=== PATIENT | female | born 1955 | race Caucasian/White ===

== ENCOUNTER 2020-12-19 01:51 | Outpatient (RCR) | payer MEDICARE, OTHER, SELFPAY ==
[2020-11-28] MEDS: Normal Saline Flush 10 ML SYR IVP (08:53)
[2020-11-28 09:02] LABS: Abs Immature Grans 0.02 10^3/uL (0.0-0.06); Absolute Basophil Count 0.03 10^3/uL (0.0-0.2); Absolute Eosinophil Count 0.22 10^3/uL (0.0-0.7); Absolute Lymphocyte Count 1.71 10^3/uL (1.2-3.4); Absolute Monocyte Count 0.82 10^3/uL (0.1-0.8); Absolute Neutrophil Count 6.07 10^3/uL (1.2-6.7); Basophils % 0.3; Eosinophils % 2.5; HCT 44.9 % (36.0-46.0); HGB 14.3 g/dL (11.2-15.7); Immature Grans % 0.2; Lymphocytes % 19.3; MCH 31.2 pg (27.0-33.0); MCHC 31.8 % (32.0-36.0); MPV 10.1 fL (8.0-11.0); Monocytes % 9.2; Neutrophils % 68.5; Nucleated RBC 0 %; Platelet Count 226 10^3/uL (130-400); RBC 4.58 10^6/uL (3.93-5.22); RDW 14.6 % (11.7-14.6); RDW-SD 52.5 fL; WBC 8.87 10^3/uL (4.4-10.8)
[2020-11-28 09:19] LABS: ALT 14 U/L (14-59); AST 13 U/L (15-37); Albumin 3.4 g/dL (3.4-5.0); Alkaline Phosphatase 120 U/L (46-116); Anion Gap 4.9 mmol/L (3-11); BUN 8 mg/dL (7-18); Bilirubin, Total 0.4 mg/dL (0.2-1.0); CO2 31.1 mmol/L (21.0-32.0); CREATININE 0.8 mg/dL (0.55-1.02); Calcium 9.6 mg/dL (8.5-10.1); Chloride 104 mmol/L (98-107); Glucose 108 mg/dL (74-106); Magnesium 1.8 mg/dL (1.8-2.4); Potassium 4.2 mmol/L (3.5-5.1); Sodium 140 mmol/L (136-145); Total Protein 7.3 g/dL (6.4-8.2)
[2020-12-19] MEDS: Normal Saline Flush 10 ML SYR IVP (07:29)
[2020-12-19 07:44] LABS: Abs Immature Grans 0.28 10^3/uL (0.0-0.06); Absolute Basophil Count 0.03 10^3/uL (0.0-0.2); Absolute Eosinophil Count 0.02 10^3/uL (0.0-0.7); Absolute Lymphocyte Count 2.02 10^3/uL (1.2-3.4); Absolute Monocyte Count 0.65 10^3/uL (0.1-0.8); Absolute Neutrophil Count 3.59 10^3/uL (1.2-6.7); Basophils % 0.5; Eosinophils % 0.3; HCT 37.8 % (36.0-46.0); HGB 12.2 g/dL (11.2-15.7); Immature Grans % 4.2; Lymphocytes % 30.7; MCH 30.7 pg (27.0-33.0); MCHC 32.3 % (32.0-36.0); Monocytes % 9.9; Neutrophils % 54.4; Nucleated RBC 0 %; Platelet Count 191 10^3/uL (130-400); RBC 3.98 10^6/uL (3.93-5.22); RDW 14.2 % (11.7-14.6); RDW-SD 47.8 fL; WBC 6.59 10^3/uL (4.4-10.8)
[2020-12-19 07:58] LABS: ALT 18 U/L (14-59); AST 17 U/L (15-37); Albumin 2.7 g/dL (3.4-5.0); Alkaline Phosphatase 107 U/L (46-116); Anion Gap 7.6 mmol/L (3-11); BUN 9 mg/dL (7-18); Bilirubin, Total 0.1 mg/dL (0.2-1.0); CO2 29.4 mmol/L (21.0-32.0); CREATININE 0.9 mg/dL (0.55-1.02); Calcium 9.3 mg/dL (8.5-10.1); Chloride 104 mmol/L (98-107); Glucose 91 mg/dL (74-106); Sodium 141 mmol/L (136-145); Total Protein 6.4 g/dL (6.4-8.2)
== END 2020-12-27 23:59 | disposition home or self-care (01) ==
LOC: INF 01:51
PROVIDERS: PCP Nurse Practitioner Family; Visit Provider Internal Medicine Medical Oncology
DX: C34.12 Malignant neoplasm of upper lobe, left bronchus or lung (principal); Z45.2 Encounter for adjustment and management of vascular access device
CPT/HCPCS: 36591; 80053; 83735; 85025

== ENCOUNTER 2021-01-09 03:25 | Outpatient (RCR) | payer MEDICARE, OTHER, SELFPAY ==
[2021-01-09] MEDS: Normal Saline Flush 10 ML SYR IVP (07:32)
[2021-01-09 07:41] LABS: Abs Immature Grans 0.26 10^3/uL (0.0-0.06); Absolute Basophil Count 0.03 10^3/uL (0.0-0.2); Absolute Eosinophil Count 0.04 10^3/uL (0.0-0.7); Absolute Neutrophil Count 7.13 10^3/uL (1.2-6.7); Basophils % 0.3; Eosinophils % 0.4; HCT 31.3 % (36.0-46.0); Immature Grans % 2.6; Lymphocytes % 15.9; MCH 30.4 pg (27.0-33.0); MCHC 31.9 % (32.0-36.0); MCV 95.1 fL (80-95); MPV 10.8 fL (8.0-11.0); Monocytes % 9.9; Neutrophils % 70.9; Nucleated RBC 0 %; Platelet Count 111 10^3/uL (130-400); RBC 3.29 10^6/uL (3.93-5.22); RDW 15.4 % (11.7-14.6); WBC 10.06 10^3/uL (4.4-10.8)
[2021-01-09 08:01] LABS: Magnesium 1.3 mg/dL (1.8-2.4)
[2021-01-09 08:04] LABS: ALT 33 U/L (14-59); AST 22 U/L (15-37); Albumin 2.5 g/dL (3.4-5.0); Alkaline Phosphatase 112 U/L (46-116); BUN 11 mg/dL (7-18); Bilirubin, Total 0.2 mg/dL (0.2-1.0); CREATININE 0.8 mg/dL (0.55-1.02); Chloride 104 mmol/L (98-107); Glucose 120 mg/dL (74-106); Potassium 4.4 mmol/L (3.5-5.1); Sodium 139 mmol/L (136-145); Total Protein 6.3 g/dL (6.4-8.2)
== END 2021-01-26 23:59 | disposition home or self-care (01) ==
LOC: INF 03:25
PROVIDERS: PCP Nurse Practitioner Family; Visit Provider Internal Medicine Medical Oncology
DX: C34.12 Malignant neoplasm of upper lobe, left bronchus or lung (principal); Z45.2 Encounter for adjustment and management of vascular access device
CPT/HCPCS: 36591; 80053; 83735; 85025

== ENCOUNTER 2021-02-20 00:48 | Outpatient (RCR) | payer MEDICARE, OTHER, SELFPAY ==
[2021-02-13] MEDS: Normal Saline Flush 10 ML SYR IVP (08:36)
[2021-02-13] MEDS: Heparin 500 UNITS/5 ML SYRINGE IV (08:36)
[2021-02-13 08:54] LABS: Abs Immature Grans 0.04 10^3/uL (0.0-0.06); Absolute Basophil Count 0.03 10^3/uL (0.0-0.2); Absolute Lymphocyte Count 2.64 10^3/uL (1.2-3.4); Absolute Monocyte Count 0.79 10^3/uL (0.1-0.8); Absolute Neutrophil Count 6.42 10^3/uL (1.2-6.7); Basophils % 0.3; HCT 35.5 % (36.0-46.0); HGB 10.8 g/dL (11.2-15.7); Immature Grans % 0.4; Lymphocytes % 26.3; MCH 30.5 pg (27.0-33.0); MCHC 30.4 % (32.0-36.0); MCV 100.3 fL (80-95); MPV 11.4 fL (8.0-11.0); Monocytes % 7.9; Neutrophils % 64.1; Nucleated RBC 0 %; RBC 3.54 10^6/uL (3.93-5.22); RDW 18.1 % (11.7-14.6); RDW-SD 66.4 fL; WBC 10.02 10^3/uL (4.4-10.8)
[2021-02-13 09:05] LABS: ALT 22 U/L (14-59); AST 18 U/L (15-37); Albumin 2.8 g/dL (3.4-5.0); Alkaline Phosphatase 142 U/L (46-116); Anion Gap 6.4 mmol/L (3-11); BUN 8 mg/dL (7-18); Bilirubin, Total 0.4 mg/dL (0.2-1.0); CO2 30.6 mmol/L (21.0-32.0); CREATININE 0.9 mg/dL (0.55-1.02); Calcium 9.9 mg/dL (8.5-10.1); Chloride 105 mmol/L (98-107); Glucose 95 mg/dL (74-106); Magnesium 1.4 mg/dL (1.8-2.4); Potassium 4.4 mmol/L (3.5-5.1); Sodium 142 mmol/L (136-145); Total Protein 7.5 g/dL (6.4-8.2)
[2021-02-13 09:19] LABS: Diff Comment Diff Reviewed; Platelet Count 58 10^3/uL (130-400)
[2021-02-13 09:20] LABS: Basophilic Stippling Present; Poikilocytes 1+; Polychromasia Present
== END 2021-02-26 23:59 | disposition home or self-care (01) ==
LOC: INF 00:48
PROVIDERS: PCP Nurse Practitioner Family; Visit Provider Internal Medicine Medical Oncology
DX: C34.12 Malignant neoplasm of upper lobe, left bronchus or lung (principal); Z45.2 Encounter for adjustment and management of vascular access device
CPT/HCPCS: 36591; 80053; 83735; 85025

== ENCOUNTER 2024-11-24 07:33 | Outpatient (CLI) | payer MEDICARE, OTHER, MEDICAID, SELFPAY ==
--- NOTE | 2024-11-24 07:30 | RT.EKG_ITS ---
APPROVED REPORT Exam: Resting ECG Reason for Exam: syncope Patient Location: O HR:76 bpm ECG Measurements Heart Rate 76 AXIS MS 159 P 52 QRSd 93 QRS 86 QT 374 T 57 QTc 421 Conclusion Sinus rhythm...normal P axis, V-rate 50- 99 Left atrial enlargement...P, P'>60mS, <-0.15mV V1 Borderline right axis deviation...QRS axis ( 81, 90) Borderline T abnormalities, anterior leads...T flat or neg, V2-V4
== END 2024-11-24 07:34 | disposition home or self-care (01) ==
LOC: DI.CARD 07:34
PROVIDERS: PCP Family Medicine; Visit Provider Internal Medicine Cardiovascular Disease
DX: R55 Syncope and collapse (principal); I51.7 Cardiomegaly
CPT/HCPCS: 93010

== ENCOUNTER → 2024-11-24 11:10 | Outpatient (BNVA) | payer MEDICARE, OTHER, MEDICAID, SELFPAY | PROVIDERS: Family Provider Family Medicine; PCP Family Medicine; Referring Provider Family Medicine; Visit Provider Internal Medicine Cardiovascular Disease | DX: I95.1 Orthostatic hypotension (principal) | CPT/HCPCS: 99203; 93005 ==